=== PATIENT | male | born 1985 | race Caucasian/White ===

== ENCOUNTER 2017-07-15 10:56 | Outpatient (CLI) | payer OTHER ==
[2017-07-15 11:09] LABS: BASOPHILS % 0.6 (0.0-1.5); EOSINOPHILS % 2.5 % (0.0-6.8); MEAN CORPUSCULAR HEMOGLOBIN 31.2 pg (28.0-34.0); MEAN CORPUSCULAR VOLUME 92.5 fl (80.0-100.0); MONOCYTES % 4.7 % (0.0-11.0); NEUTROPHILS # 4.3 # k/uL (1.4-7.7)
[2017-07-15 11:34] LABS: eGFR (African) > 60; eGFR (Non-African) > 60
== END 2017-07-15 10:57 ==
LOC: LAB 10:56
PROVIDERS: ATTEND Internal Medicine Gastroenterology
DX: R94.5 Abnormal results of liver function studies (principal); D62 Acute posthemorrhagic anemia
CPT/HCPCS: 36415; 80053; 85025

== ENCOUNTER 2018-02-07 12:49 | Outpatient (CLI) | payer OTHER ==
[2018-02-07 14:12] LABS: eGFR (African) > 60; eGFR (Non-African) > 60
[2018-02-07 14:19] LABS: BASOPHILS % 0.5 (0.0-1.5); EOSINOPHILS % 4.1 % (0.0-6.8); MEAN CORPUSCULAR HEMOGLOBIN 31.3 pg (28.0-34.0); MEAN CORPUSCULAR VOLUME 93.2 fl (80.0-100.0); MONOCYTES % 3.4 % (0.0-11.0); NEUTROPHILS # 4.2 # k/uL (1.4-7.7)
== END 2018-02-07 14:23 ==
LOC: LAB 12:49
PROVIDERS: ATTEND Internal Medicine Gastroenterology
DX: R94.5 Abnormal results of liver function studies (principal); K86.1 Other chronic pancreatitis
CPT/HCPCS: 80053; 85025